=== PATIENT | male | born 1955 | race African-American/Black ===

== ENCOUNTER 2021-05-31 13:56 | Observation (INO) | payer BC, OTHER ==
[2021-05-31 17:01] LABS: PROTHROMBIN TIME (PATIENT) 11.5 SEC (9.7-13.0)
[2021-05-31 17:04] LABS: ACTIVATED PTT 30.9 SECONDS (25.2-36.5)
[2021-05-31 17:14] LABS: BASO % 0.6 % (0-2.0); EOS % 1.5 % (0-4.5); HEMATOCRIT 46.2 % (35.4-49); LYMPH % 48.5 % (8-40); MCH 30.5 pg (25.7-33.7); MCHC 34.7 g/dl (32.0-35.9); MEAN CELL VOLUME 87.9 fl (80-96); MEAN PLT VOLUME 10.7 fl (7.5-11.1); MONO % 7.2 % (3.8-10.2); NEUT % 42.2 % (42.8-82.8); PLATELET COUNT 141 10^3/uL (134-434); RBC 5.25 M/mm3 (4.00-5.60); RDW 13.1 % (11.9-15.9); WHITE BLOOD COUNT 4.5 K/mm3 (4.0-10.0)
[2021-05-31 17:17] LABS: CALCIUM 9.4 mg/dL (8.5-10.1)
[2021-05-31 17:19] LABS: ALBUMIN 4.2 g/dl (3.4-5.0)
[2021-05-31 17:21] LABS: CREATININE 1.3 mg/dL (0.55-1.3)
[2021-05-31 17:22] LABS: BILIRUBIN,TOTAL 0.9 mg/dL (0.2-1); TOT PROT 8.7 g/dl (6.4-8.2)
[2021-05-31] MEDS ORDERED: ASPIRIN 81 MG CHEWABLE TABLETS PO ONE (17:35)
[2021-05-31] MEDS ORDERED: ATORVASTATIN CA 80 MG TABLET (FP) PO ONE (17:36)
[2021-05-31] MEDS ORDERED: ATORVASTATIN CA 80 MG TABLET (FP) ONE ×2 (18:07→23:08)
[2021-05-31] MEDS ORDERED: ASPIRIN 81 MG CHEWABLE TABLETS ONE (18:08)
[2021-05-31] MEDS: INSULIN SLIDING SCALE (NOVOLOG) 1 VIAL SQ SCH (23:07)
[2021-05-31] MEDS ORDERED: HEPARIN NA (PORCINE) 5,000 UNITS/ML 1ML VIAL ONE (23:08)
[2021-05-31 23:13] LABS: EPI CELLS 5 /uL (0-25.1); HYALINE CASTS 0 /uL (0-3.1); URINE APPEARANCE CLEAR; URINE BACTERIA 35 /uL (0-1359); URINE BILIRUBIN NEGATIVE (NEGATIVE); URINE COLOR YELLOW; URINE GLUCOSE (UA) 3+ (NEGATIVE); URINE KETONE 1+ (NEGATIVE); URINE LEUK ESTERASE NEGATIVE (NEGATIVE); URINE NITRITE NEGATIVE (NEGATIVE); URINE PROTEIN NEGATIVE (NEGATIVE); URINE RBC 10 /uL (0-23.9); URINE UROBILINOGEN 0.2 mg/dL (0.2-1.0); URINE WBC 24 /uL (0-25.8)
[2021-05-31] MEDS: ATORVASTATIN CA 80 MG TABLET (FP) PO SCH (23:14)
[2021-05-31] MEDS: HEPARIN NA (PORCINE) 5,000 UNITS/ML 1ML VIAL SQ SCH (23:14)
[2021-06-01 07:54] LABS: BASO % 0.6 % (0-2.0); EOS % 2.2 % (0-4.5); HEMATOCRIT 41.2 % (35.4-49); HEMOGLOBIN 14.4 GM/dL (11.7-16.9); LYMPH % 57.6 % (8-40); MCH 30.4 pg (25.7-33.7); MCHC 34.9 g/dl (32.0-35.9); MEAN CELL VOLUME 87.3 fl (80-96); MEAN PLT VOLUME 11.5 fl (7.5-11.1); MONO % 8.2 % (3.8-10.2); NEUT % 31.4 % (42.8-82.8); PLATELET COUNT 149 10^3/uL (134-434); RBC 4.72 M/mm3 (4.00-5.60); RDW 13.1 % (11.9-15.9); WHITE BLOOD COUNT 3.1 K/mm3 (4.0-10.0)
[2021-06-01 08:05] LABS: CALCIUM 9.8 mg/dL (8.5-10.1)
[2021-06-01 08:06] LABS: ALBUMIN 4.1 g/dl (3.4-5.0); BLOOD UREA NITROGEN 18.7 mg/dL (7-18)
[2021-06-01 08:09] LABS: CREATININE 1.1 mg/dL (0.55-1.3)
[2021-06-01 08:10] LABS: TOT PROT 8.1 g/dl (6.4-8.2)
[2021-06-01 08:11] LABS: BILIRUBIN,TOTAL 0.7 mg/dL (0.2-1)
[2021-06-01] MEDS ORDERED: HEPARIN NA (PORCINE) 5,000 UNITS/ML 1ML VIAL ONE (08:25)
[2021-06-01] MEDS ORDERED: ASPIRIN COATED 81 MG TABLET.EC ONE (08:25)
[2021-06-01] MEDS: ASPIRIN COATED 81 MG TABLET.EC PO SCH (09:52)
[2021-06-01] MEDS: HEPARIN NA (PORCINE) 5,000 UNITS/ML 1ML VIAL SQ SCH ×2 (09:52→21:17)
[2021-06-01] MEDS: INSULIN SLIDING SCALE (NOVOLOG) 1 VIAL SQ SCH ×4 (09:52→21:15)
[2021-06-01] MEDS ORDERED: ATORVASTATIN CA 40 MG TABLET (FP) ONE (20:58)
[2021-06-01] MEDS: ATORVASTATIN CA 80 MG TABLET (FP) PO SCH (21:17)
[2021-06-02 01:07] VITALS: BMI 29.1
[2021-06-02] MEDS: INSULIN SLIDING SCALE (NOVOLOG) 1 VIAL SQ SCH ×4 (06:50→21:02)
[2021-06-02 07:23] LABS: BASO % 0.6 % (0-2.0); EOS % 2.4 % (0-4.5); HEMATOCRIT 42.1 % (35.4-49); HEMOGLOBIN 14.5 GM/dL (11.7-16.9); LYMPH % 50.4 % (8-40); MCH 30.2 pg (25.7-33.7); MCHC 34.4 g/dl (32.0-35.9); MONO % 7.4 % (3.8-10.2); NEUT % 39.2 % (42.8-82.8); PLATELET COUNT 125 10^3/uL (134-434); RBC 4.79 M/mm3 (4.00-5.60); RDW 12.8 % (11.9-15.9); WHITE BLOOD COUNT 3.5 K/mm3 (4.0-10.0)
[2021-06-02 07:48] LABS: CALCIUM 9.4 mg/dL (8.5-10.1)
[2021-06-02 07:49] LABS: ALBUMIN 3.7 g/dl (3.4-5.0)
[2021-06-02 07:50] LABS: BILIRUBIN,TOTAL 0.6 mg/dL (0.2-1); TOT PROT 7.2 g/dl (6.4-8.2)
[2021-06-02 07:52] LABS: CREATININE 1.2 mg/dL (0.55-1.3)
[2021-06-02] MEDS: ASPIRIN COATED 81 MG TABLET.EC PO SCH (10:00)
[2021-06-02] MEDS: CLOPIDOGREL BISULFATE 75 MG TABLET (FP) PO SCH (10:00)
[2021-06-02] MEDS: HEPARIN NA (PORCINE) 5,000 UNITS/ML 1ML VIAL SQ SCH ×2 (10:00→21:03)
[2021-06-02] MEDS ORDERED: ATORVASTATIN CA 40 MG TABLET (FP) ONE (20:52)
[2021-06-02] MEDS: ATORVASTATIN CA 80 MG TABLET (FP) PO SCH (21:02)
[2021-06-03] MEDS: INSULIN SLIDING SCALE (NOVOLOG) 1 VIAL SQ SCH ×4 (06:18→21:14)
[2021-06-03] MEDS: HEPARIN NA (PORCINE) 5,000 UNITS/ML 1ML VIAL SQ SCH ×2 (10:16→21:14)
[2021-06-03] MEDS: CLOPIDOGREL BISULFATE 75 MG TABLET (FP) PO SCH (10:16)
[2021-06-03] MEDS: ASPIRIN COATED 81 MG TABLET.EC PO SCH (10:16)
[2021-06-03] MEDS ORDERED: ATORVASTATIN CA 40 MG TABLET (FP) ONE (21:11)
[2021-06-03] MEDS: ATORVASTATIN CA 80 MG TABLET (FP) PO SCH (21:14)
[2021-06-04] MEDS: INSULIN SLIDING SCALE (NOVOLOG) 1 VIAL SQ SCH ×4 (06:26→21:36)
[2021-06-04] MEDS: ASPIRIN COATED 81 MG TABLET.EC PO SCH (09:42)
[2021-06-04] MEDS: CLOPIDOGREL BISULFATE 75 MG TABLET (FP) PO SCH (09:42)
[2021-06-04] MEDS: HEPARIN NA (PORCINE) 5,000 UNITS/ML 1ML VIAL SQ SCH ×2 (09:42→21:35)
[2021-06-04] MEDS ORDERED: ATORVASTATIN CA 40 MG TABLET (FP) ONE (21:34)
[2021-06-04] MEDS: ATORVASTATIN CA 80 MG TABLET (FP) PO SCH (21:35)
[2021-06-05] MEDS: INSULIN SLIDING SCALE (NOVOLOG) 1 VIAL SQ SCH ×3 (06:44→18:00)
[2021-06-05 08:55] VITALS: PULSE 68
[2021-06-05] MEDS: CLOPIDOGREL BISULFATE 75 MG TABLET (FP) PO SCH (10:16)
[2021-06-05] MEDS: ASPIRIN COATED 81 MG TABLET.EC PO SCH (10:16)
[2021-06-05] MEDS: HEPARIN NA (PORCINE) 5,000 UNITS/ML 1ML VIAL SQ SCH (10:16)
[2021-06-05 14:16] VITALS: BP 144/76; TEMP 98.2
== END 2021-06-05 19:02 | disposition home health service (06) ==
LOC: JER 13:56 → INTOOBSV 17:25 → JERBED 17:25 → J4S 06-01 19:28
PROVIDERS: ADMIT Internal Medicine; ATTEND Internal Medicine
PROC: 3E023GC Introduction of Other Therapeutic Substance into Muscle, Percutaneous Approach (ICD-10-PCS; principal; 2021-05-31)
PROC: 3E013VG Introduction of Insulin into Subcutaneous Tissue, Percutaneous Approach (ICD-10-PCS; 2021-05-31)
DX: I63.9 Cerebral infarction, unspecified (principal); E11.9 Type 2 diabetes mellitus without complications; E78.5 Hyperlipidemia, unspecified; I10 Essential (primary) hypertension; E78.00 Pure hypercholesterolemia, unspecified
CPT/HCPCS: 36415; 70450-TC; 70551-TC; 71045-TC-FY; 80053; 80061; 81003; 82962; 83036; 84484; 85025; 85610; 85730; 86850; 86900; 86901; 93005; 93010; 93306-TC; 93880-TC; 97116-GP; 97161-GP; 99285-25; C9803; G0378; J1644; U0003; U0005

== ENCOUNTER 2021-08-23 14:04 | Inpatient (IN) | payer BC, OTHER ==
[2021-08-23 17:44] LABS: BASO % 0.7 % (0-2.0); EOS % 1.8 % (0-4.5); HEMATOCRIT 39.4 % (35.4-49); HEMOGLOBIN 13.5 GM/dL (11.7-16.9); LYMPH % 41.2 % (8-40); MCH 30.1 pg (25.7-33.7); MCHC 34.3 g/dl (32.0-35.9); MEAN CELL VOLUME 87.7 fl (80-96); MEAN PLT VOLUME 9.8 fl (7.5-11.1); MONO % 5.6 % (3.8-10.2); NEUT % 50.7 % (42.8-82.8); PLATELET COUNT 197 10^3/uL (134-434); RDW 13.6 % (11.9-15.9); WHITE BLOOD COUNT 4.5 K/mm3 (4.0-10.0)
[2021-08-23 18:00] LABS: INR 1.1 (0.83-1.09); PROTHROMBIN TIME (PATIENT) 12.7 SEC (9.7-13.0)
[2021-08-23 18:09] LABS: CALCIUM 9.7 mg/dL (8.5-10.1)
[2021-08-23 18:10] LABS: ALBUMIN 3.8 g/dl (3.4-5.0)
[2021-08-23 18:13] LABS: CREATININE 1.2 mg/dL (0.55-1.3)
[2021-08-23 18:14] LABS: BILIRUBIN,TOTAL 0.8 mg/dL (0.2-1)
[2021-08-23 18:15] LABS: TOT PROT 8.3 g/dl (6.4-8.2)
[2021-08-23 20:41] LABS: URINE APPEARANCE CLEAR; URINE BILIRUBIN NEGATIVE (NEGATIVE); URINE COLOR YELLOW; URINE GLUCOSE (UA) 3+ (NEGATIVE); URINE KETONE NEGATIVE (NEGATIVE); URINE LEUK ESTERASE NEGATIVE (NEGATIVE); URINE NITRITE NEGATIVE (NEGATIVE); URINE PROTEIN NEGATIVE (NEGATIVE); URINE UROBILINOGEN 0.2 mg/dL (0.2-1.0)
[2021-08-24 03:05] VITALS: BMI 27.1
[2021-08-24] MEDS: CLOPIDOGREL BISULFATE 75 MG TABLET (FP) PO SCH (09:46)
[2021-08-24] MEDS: HEPARIN NA (PORCINE) 5,000 UNITS/ML 1ML VIAL SQ SCH ×2 (09:47→21:43)
[2021-08-24] MEDS: ASPIRIN COATED 81 MG TABLET.EC PO SCH (09:47)
[2021-08-24 10:57] LABS: BASO % 0.6 % (0-2.0); EOS % 2.1 % (0-4.5); HEMATOCRIT 36.9 % (35.4-49); HEMOGLOBIN 12.6 GM/dL (11.7-16.9); LYMPH % 34.4 % (8-40); MCH 30.1 pg (25.7-33.7); MCHC 34.1 g/dl (32.0-35.9); MEAN CELL VOLUME 88.1 fl (80-96); MEAN PLT VOLUME 9.6 fl (7.5-11.1); MONO % 5.7 % (3.8-10.2); NEUT % 57.2 % (42.8-82.8); PLATELET COUNT 173 10^3/uL (134-434); RBC 4.19 M/mm3 (4.00-5.60); RDW 13.5 % (11.9-15.9); WHITE BLOOD COUNT 4.2 K/mm3 (4.0-10.0)
[2021-08-24 11:26] LABS: ALBUMIN 3.4 g/dl (3.4-5.0); BLOOD UREA NITROGEN 14.3 mg/dL (7-18)
[2021-08-24 11:27] LABS: CALCIUM 9.3 mg/dL (8.5-10.1)
[2021-08-24 11:30] LABS: TOT PROT 7.3 g/dl (6.4-8.2)
[2021-08-24 11:31] LABS: BILIRUBIN,TOTAL 0.7 mg/dL (0.2-1)
[2021-08-24] MEDS: ATORVASTATIN CA 80 MG TABLET (FP) PO SCH (21:44)
[2021-08-25] MEDS: HEPARIN NA (PORCINE) 5,000 UNITS/ML 1ML VIAL SQ SCH ×2 (10:53→22:49)
[2021-08-25] MEDS: ASPIRIN COATED 81 MG TABLET.EC PO SCH (10:53)
[2021-08-25] MEDS: CLOPIDOGREL BISULFATE 75 MG TABLET (FP) PO SCH (10:53)
[2021-08-25] MEDS: ATORVASTATIN CA 80 MG TABLET (FP) PO SCH (22:49)
[2021-08-26 09:54] LABS: BASO % 0.6 % (0-2.0); EOS % 2.3 % (0-4.5); HEMATOCRIT 37.4 % (35.4-49); HEMOGLOBIN 12.5 GM/dL (11.7-16.9); LYMPH % 52.6 % (8-40); MCH 29.7 pg (25.7-33.7); MCHC 33.5 g/dl (32.0-35.9); MEAN CELL VOLUME 88.7 fl (80-96); MEAN PLT VOLUME 10.7 fl (7.5-11.1); MONO % 6.2 % (3.8-10.2); NEUT % 38.3 % (42.8-82.8); PLATELET COUNT 175 10^3/uL (134-434); RBC 4.21 M/mm3 (4.00-5.60); RDW 13.5 % (11.9-15.9); WHITE BLOOD COUNT 3.8 K/mm3 (4.0-10.0)
[2021-08-26] MEDS: CLOPIDOGREL BISULFATE 75 MG TABLET (FP) PO SCH (09:57)
[2021-08-26] MEDS: HEPARIN NA (PORCINE) 5,000 UNITS/ML 1ML VIAL SQ SCH ×2 (09:57→22:11)
[2021-08-26] MEDS: ASPIRIN COATED 81 MG TABLET.EC PO SCH (09:57)
[2021-08-26] MEDS ORDERED: TAMSULOSIN HCL 0.4 MG CAP PO ONE (10:15)
[2021-08-26 10:20] LABS: BLOOD UREA NITROGEN 13.3 mg/dL (7-18)
[2021-08-26 10:21] LABS: ALBUMIN 3.3 g/dl (3.4-5.0)
[2021-08-26 10:23] LABS: TOT PROT 7.2 g/dl (6.4-8.2)
[2021-08-26 10:24] LABS: BILIRUBIN,TOTAL 0.6 mg/dL (0.2-1)
[2021-08-26] MEDS: CLOTRIMAZOLE/BETAMET DIPROP 15 GM TUBE TP SCH ×2 (11:27→22:11)
[2021-08-26] MEDS: ATORVASTATIN CA 80 MG TABLET (FP) PO SCH (22:11)
[2021-08-27] MEDS: ASPIRIN COATED 81 MG TABLET.EC PO SCH (10:17)
[2021-08-27] MEDS: CLOTRIMAZOLE/BETAMET DIPROP 15 GM TUBE TP SCH ×2 (10:17→21:38)
[2021-08-27] MEDS: HEPARIN NA (PORCINE) 5,000 UNITS/ML 1ML VIAL SQ SCH ×3 (10:17→21:42)
[2021-08-27] MEDS: CLOPIDOGREL BISULFATE 75 MG TABLET (FP) PO SCH (10:17)
[2021-08-27] MEDS ORDERED: DONEPEZIL HCL 10 MG TABLET (FP) PO SCH (15:00)
[2021-08-27] MEDS: INSULIN SLIDING SCALE (NOVOLOG) 1 VIAL SQ SCH ×2 (17:01→21:42)
[2021-08-27] MEDS: metFORMIN HCL 500 MG TABLET (FP) PO SCH (17:04)
[2021-08-27] MEDS ORDERED: INSULIN (NOVOLOG) ASPART 100 UNITS/ML 10ML VIAL ONE (20:54)
[2021-08-27] MEDS: ATORVASTATIN CA 80 MG TABLET (FP) PO SCH ×2 (21:37→21:42)
[2021-08-28 05:47] VITALS: BP 157/112; PULSE 86
[2021-08-28] MEDS: metFORMIN HCL 500 MG TABLET (FP) PO SCH (06:00)
[2021-08-28] MEDS: INSULIN SLIDING SCALE (NOVOLOG) 1 VIAL SQ SCH (06:00)
[2021-08-28 06:24] VITALS: TEMP 98.3
== END 2021-08-28 10:29 | disposition left against medical advice (07) | DRG 57 ==
LOC: JER 14:04 → JERBED 17:39 → J6S 08-24 02:34
PROVIDERS: ADMIT Internal Medicine; ATTEND Internal Medicine
DX: G31.84 Mild cognitive impairment of uncertain or unknown etiology (principal); R07.89 Other chest pain; I10 Essential (primary) hypertension; E78.00 Pure hypercholesterolemia, unspecified; E78.5 Hyperlipidemia, unspecified; N48.1 Balanitis; E11.65 Type 2 diabetes mellitus with hyperglycemia; R33.9 Retention of urine, unspecified; N40.1 Benign prostatic hyperplasia with lower urinary tract symptoms
CPT/HCPCS: 36415; 70450-TC; 71046-TC-FY; 80053; 81003; 82962; 83036; 84443; 84484; 85025; 85610; 87077; 87086; 93005; 93010; 93306-TC; 97116-GP; 97162-GP; 99285-25; C9803-CS; J1644; U0003; U0005

== ENCOUNTER 2023-01-25 15:48 | Inpatient (IN) | payer OTHER ==
[2023-01-25] MEDS ORDERED: SODIUM CHLORIDE 0.9% 500 ML INFUS.BAG IV ONE (16:42)
[2023-01-25 18:06] LABS: BASO % 0.3 % (0-2.0); EOS % 0.4 % (0-4.5); HEMATOCRIT 41.4 % (35.4-49); HEMOGLOBIN 13.6 GM/dL (11.7-16.9); LYMPH % 30.8 % (8-40); MCH 29.6 pg (25.7-33.7); MCHC 32.9 g/dl (32.0-35.9); MEAN CELL VOLUME 90.1 fl (80-96); MEAN PLT VOLUME 11.3 fl (7.5-11.1); MONO % 6.1 % (3.8-10.2); NEUT % 62.4 % (42.8-82.8); PLATELET COUNT 126 10^3/uL (134-434); RBC 4.59 M/mm3 (4.00-5.60); RDW 13.6 % (11.9-15.9); WHITE BLOOD COUNT 4.7 K/mm3 (4.0-10.0)
[2023-01-25 18:11] LABS: INR 1.04 (0.83-1.09); PROTHROMBIN TIME (PATIENT) 12.1 SEC (9.7-13.0)
[2023-01-25 18:13] LABS: ACTIVATED PTT 29.2 SECONDS (25.2-36.5)
[2023-01-25 18:20] LABS: POTASSIUM 3.7 mmol/L (3.5-5.1)
[2023-01-25 18:24] LABS: BLOOD UREA NITROGEN 14.3 mg/dL (7-18); CALCIUM 9.3 mg/dL (8.5-10.1); MAGNESIUM 2.3 mg/dL (1.8-2.4)
[2023-01-25 18:27] LABS: CREATININE 1.5 mg/dL (0.55-1.3); PHOSPHOROUS 2.8 mg/dL (2.5-4.9)
[2023-01-25 18:29] LABS: BILIRUBIN,TOTAL 1.2 mg/dL (0.2-1); TOT PROT 7.4 g/dl (6.4-8.2)
[2023-01-25] MEDS ORDERED: ASPIRIN 81 MG CHEWABLE TABLETS PO ONE (21:58)
[2023-01-25] MEDS ORDERED: ATORVASTATIN CA 80 MG TABLET (FP) PO ONE (21:59)
[2023-01-25 22:04] LABS: VENOUS O2 SATURATION 60.1 % (70-80); VENOUS PCO2 46.3 mmHg (38-52); VENOUS PH 7.335 (7.310-7.410)
[2023-01-25] MEDS ORDERED: ASPIRIN 81 MG CHEWABLE TABLETS ONE (22:40)
[2023-01-25] MEDS ORDERED: ATORVASTATIN CA 80 MG TABLET (FP) ONE (22:40)
[2023-01-26 00:39] VITALS: BMI 28.3
[2023-01-26 07:56] LABS: BASO % 0.4 % (0-2.0); HEMATOCRIT 37.5 % (35.4-49); HEMOGLOBIN 12.4 GM/dL (11.7-16.9); LYMPH % 52.4 % (8-40); MCH 29.6 pg (25.7-33.7); MCHC 32.9 g/dl (32.0-35.9); MEAN CELL VOLUME 89.8 fl (80-96); MEAN PLT VOLUME 11.2 fl (7.5-11.1); MONO % 7.5 % (3.8-10.2); NEUT % 36.7 % (42.8-82.8); PLATELET COUNT 112 10^3/uL (134-434); RBC 4.18 M/mm3 (4.00-5.60); RDW 13.4 % (11.9-15.9); WHITE BLOOD COUNT 3.3 K/mm3 (4.0-10.0)
[2023-01-26 08:09] LABS: POTASSIUM 3.3 mmol/L (3.5-5.1)
[2023-01-26 08:15] LABS: CALCIUM 8.8 mg/dL (8.5-10.1)
[2023-01-26 08:16] LABS: ALBUMIN 3.5 g/dl (3.4-5.0); BLOOD UREA NITROGEN 13.7 mg/dL (7-18)
[2023-01-26 08:20] LABS: BILIRUBIN,TOTAL 1.6 mg/dL (0.2-1); TOT PROT 6.6 g/dl (6.4-8.2)
[2023-01-26 08:37] LABS: EPI CELLS 18 /uL (0-25.1); HYALINE CASTS 8 /uL (0-3.1); PH,URINE 5.5 (5.0-8.0); URINE APPEARANCE CLEAR; URINE BACTERIA 10 /uL (0-1359); URINE BILIRUBIN 1+ (NEGATIVE); URINE COLOR DK YELLOW; URINE GLUCOSE (UA) 2+ (NEGATIVE); URINE KETONE TRACE (NEGATIVE); URINE LEUK ESTERASE NEGATIVE (NEGATIVE); URINE NITRITE NEGATIVE (NEGATIVE); URINE PROTEIN 1+ (NEGATIVE); URINE WBC 21 /uL (0-25.8)
[2023-01-26] MEDS: ASPIRIN COATED 81 MG TABLET.EC PO SCH (09:41)
[2023-01-26] MEDS: CLOPIDOGREL BISULFATE 75 MG TABLET (FP) PO SCH (09:41)
[2023-01-26] MEDS: ENOXAPARIN NA (PORCINE) 40 MG/0.4 ML DISP.SYRIN SQ SCH (09:41)
[2023-01-26 10:29] LABS: URINE RBC 42.9 /uL (0-23.9)
[2023-01-26] MEDS ORDERED: POTASSIUM CHLORIDE ORAL LIQUID 20 MEQ/15 ML PO ONE (15:00)
[2023-01-26] MEDS: ATORVASTATIN CA 80 MG TABLET (FP) PO SCH (21:05)
[2023-01-27 08:20] LABS: BASO % 0.5 % (0-2.0); EOS % 2.9 % (0-4.5); HEMATOCRIT 37.2 % (35.4-49); HEMOGLOBIN 12.4 GM/dL (11.7-16.9); MCH 29.6 pg (25.7-33.7); MCHC 33.3 g/dl (32.0-35.9); MEAN CELL VOLUME 88.9 fl (80-96); MEAN PLT VOLUME 10.9 fl (7.5-11.1); MONO % 7.5 % (3.8-10.2); NEUT % 44.1 % (42.8-82.8); PLATELET COUNT 114 10^3/uL (134-434); RBC 4.18 M/mm3 (4.00-5.60); RDW 13.1 % (11.9-15.9); WHITE BLOOD COUNT 3.2 K/mm3 (4.0-10.0)
[2023-01-27 08:25] LABS: POTASSIUM 3.4 mmol/L (3.5-5.1)
[2023-01-27 08:35] LABS: CALCIUM 8.4 mg/dL (8.5-10.1)
[2023-01-27 08:36] LABS: ALBUMIN 3.3 g/dl (3.4-5.0)
[2023-01-27 08:39] LABS: CREATININE 0.9 mg/dL (0.55-1.3)
[2023-01-27 08:40] LABS: BILIRUBIN,TOTAL 1.2 mg/dL (0.2-1); TOT PROT 6.5 g/dl (6.4-8.2)
[2023-01-27] MEDS: ASPIRIN COATED 81 MG TABLET.EC PO SCH (11:12)
[2023-01-27] MEDS: ENOXAPARIN NA (PORCINE) 40 MG/0.4 ML DISP.SYRIN SQ SCH (11:12)
[2023-01-27] MEDS: CLOPIDOGREL BISULFATE 75 MG TABLET (FP) PO SCH (11:13)
[2023-01-27] MEDS ORDERED: POTASSIUM CHLORIDE ORAL LIQUID 20 MEQ/15 ML PO ONE (17:42)
[2023-01-27] MEDS: ATORVASTATIN CA 80 MG TABLET (FP) PO SCH (21:37)
[2023-01-27] MEDS: INSULIN SLIDING SCALE (NOVOLOG) 1 VIAL SQ SCH (21:44)
[2023-01-28] MEDS: metFORMIN HCL 500 MG TABLET (FP) PO SCH ×2 (06:14→17:09)
[2023-01-28] MEDS: INSULIN SLIDING SCALE (NOVOLOG) 1 VIAL SQ SCH ×4 (06:17→22:03)
[2023-01-28 08:54] LABS: BASO % 0.3 % (0-2.0); EOS % 1.2 % (0-4.5); HEMOGLOBIN 13.3 GM/dL (11.7-16.9); LYMPH % 46.9 % (8-40); MCH 30.6 pg (25.7-33.7); MCHC 35.1 g/dl (32.0-35.9); MEAN CELL VOLUME 87.1 fl (80-96); MEAN PLT VOLUME 10.9 fl (7.5-11.1); MONO % 6.8 % (3.8-10.2); NEUT % 44.8 % (42.8-82.8); PLATELET COUNT 135 10^3/uL (134-434); RBC 4.36 M/mm3 (4.00-5.60); RDW 13.4 % (11.9-15.9); WHITE BLOOD COUNT 3.4 K/mm3 (4.0-10.0)
[2023-01-28 09:13] LABS: ALBUMIN 3.6 g/dl (3.4-5.0); BLOOD UREA NITROGEN 7.8 mg/dL (7-18)
[2023-01-28 09:18] LABS: BILIRUBIN,TOTAL 1.2 mg/dL (0.2-1)
[2023-01-28] MEDS: CLOPIDOGREL BISULFATE 75 MG TABLET (FP) PO SCH (09:25)
[2023-01-28] MEDS: ENOXAPARIN NA (PORCINE) 40 MG/0.4 ML DISP.SYRIN SQ SCH (09:25)
[2023-01-28] MEDS: ASPIRIN COATED 81 MG TABLET.EC PO SCH (09:25)
[2023-01-28] MEDS: ATORVASTATIN CA 80 MG TABLET (FP) PO SCH (21:56)
[2023-01-28] MEDS ORDERED: amLODIPine BESYLATE 2.5 MG TABLET (FP) PO ONE (23:15)
[2023-01-29] MEDS: INSULIN SLIDING SCALE (NOVOLOG) 1 VIAL SQ SCH ×4 (06:18→21:50)
[2023-01-29] MEDS: metFORMIN HCL 500 MG TABLET (FP) PO SCH ×2 (06:18→16:31)
[2023-01-29 08:45] LABS: BASO % 0.5 % (0-2.0); HEMATOCRIT 38.4 % (35.4-49); HEMOGLOBIN 12.9 GM/dL (11.7-16.9); LYMPH % 46.4 % (8-40); MCH 29.6 pg (25.7-33.7); MCHC 33.5 g/dl (32.0-35.9); MEAN CELL VOLUME 88.5 fl (80-96); MEAN PLT VOLUME 10.6 fl (7.5-11.1); MONO % 6.9 % (3.8-10.2); NEUT % 43.2 % (42.8-82.8); PLATELET COUNT 134 10^3/uL (134-434); RBC 4.34 M/mm3 (4.00-5.60); RDW 12.9 % (11.9-15.9); WHITE BLOOD COUNT 3.4 K/mm3 (4.0-10.0)
[2023-01-29 08:51] LABS: POTASSIUM 3.9 mmol/L (3.5-5.1)
[2023-01-29 09:00] LABS: ALBUMIN 3.7 g/dl (3.4-5.0); BLOOD UREA NITROGEN 9.3 mg/dL (7-18); CALCIUM 9.1 mg/dL (8.5-10.1)
[2023-01-29 09:04] LABS: BILIRUBIN,TOTAL 1.5 mg/dL (0.2-1)
[2023-01-29 09:05] LABS: TOT PROT 6.8 g/dl (6.4-8.2)
[2023-01-29] MEDS: amLODIPine BESYLATE 2.5 MG TABLET (FP) PO SCH (10:41)
[2023-01-29] MEDS: CLOPIDOGREL BISULFATE 75 MG TABLET (FP) PO SCH (10:41)
[2023-01-29] MEDS: ASPIRIN COATED 81 MG TABLET.EC PO SCH (10:41)
[2023-01-29] MEDS: ENOXAPARIN NA (PORCINE) 40 MG/0.4 ML DISP.SYRIN SQ SCH (10:41)
[2023-01-29] MEDS: ATORVASTATIN CA 80 MG TABLET (FP) PO SCH (21:50)
[2023-01-30] MEDS: ONDANSETRON 4 MG/2 ML VIAL IVPUSH PRN ×2 (03:14→20:17)
[2023-01-30] MEDS: metFORMIN HCL 500 MG TABLET (FP) PO SCH ×2 (06:02→17:08)
[2023-01-30] MEDS: INSULIN SLIDING SCALE (NOVOLOG) 1 VIAL SQ SCH ×4 (06:10→21:04)
[2023-01-30] MEDS: ASPIRIN COATED 81 MG TABLET.EC PO SCH (09:06)
[2023-01-30] MEDS: CLOPIDOGREL BISULFATE 75 MG TABLET (FP) PO SCH (09:06)
[2023-01-30] MEDS: ENOXAPARIN NA (PORCINE) 40 MG/0.4 ML DISP.SYRIN SQ SCH (09:06)
[2023-01-30] MEDS: amLODIPine BESYLATE 2.5 MG TABLET (FP) PO SCH (09:06)
[2023-01-30] MEDS: ATORVASTATIN CA 80 MG TABLET (FP) PO SCH (21:59)
[2023-01-31] MEDS: INSULIN SLIDING SCALE (NOVOLOG) 1 VIAL SQ SCH ×4 (06:20→21:31)
[2023-01-31] MEDS: metFORMIN HCL 500 MG TABLET (FP) PO SCH ×2 (06:21→17:26)
[2023-01-31] MEDS: ENOXAPARIN NA (PORCINE) 40 MG/0.4 ML DISP.SYRIN SQ SCH (10:01)
[2023-01-31] MEDS: ASPIRIN COATED 81 MG TABLET.EC PO SCH (10:01)
[2023-01-31] MEDS: CLOPIDOGREL BISULFATE 75 MG TABLET (FP) PO SCH (10:01)
[2023-01-31] MEDS: amLODIPine BESYLATE 5 MG TABLET (FP) PO SCH (10:01)
[2023-01-31] MEDS: ATORVASTATIN CA 80 MG TABLET (FP) PO SCH (21:28)
[2023-02-01] MEDS: ONDANSETRON 4 MG/2 ML VIAL IVPUSH PRN ×2 (05:37→21:25)
[2023-02-01] MEDS: metFORMIN HCL 500 MG TABLET (FP) PO SCH ×2 (06:07→16:41)
[2023-02-01] MEDS: INSULIN SLIDING SCALE (NOVOLOG) 1 VIAL SQ SCH ×4 (06:07→21:25)
[2023-02-01] MEDS: ASPIRIN COATED 81 MG TABLET.EC PO SCH (09:20)
[2023-02-01] MEDS: CLOPIDOGREL BISULFATE 75 MG TABLET (FP) PO SCH (09:20)
[2023-02-01] MEDS: ENOXAPARIN NA (PORCINE) 40 MG/0.4 ML DISP.SYRIN SQ SCH (09:20)
[2023-02-01] MEDS: amLODIPine BESYLATE 5 MG TABLET (FP) PO SCH (09:20)
[2023-02-01] MEDS ORDERED: PANTOPRAZOLE 40 MG TABLET PO SCH (12:30)
[2023-02-01 15:35] VITALS: PULSE 86
[2023-02-01] MEDS: ATORVASTATIN CA 80 MG TABLET (FP) PO SCH (21:16)
[2023-02-01 21:28] VITALS: BP 165/93; RESP 16; TEMP 97.8
== END 2023-02-02 01:00 | DRG 65 ==
LOC: JER 15:48 → JERBED 22:08 → J4S 23:49
PROVIDERS: ADMIT Internal Medicine; ATTEND Internal Medicine
DX: I63.9 Cerebral infarction, unspecified (principal); G81.94 Hemiplegia, unspecified affecting left nondominant side; I10 Essential (primary) hypertension; E11.9 Type 2 diabetes mellitus without complications; N40.0 Benign prostatic hyperplasia without lower urinary tract symptoms; R29.703 NIHSS score 3; E78.00 Pure hypercholesterolemia, unspecified
CPT/HCPCS: 0241U-QW; 36415; 70450-TC; 70544-TC; 70551-TC; 71045-TC-FY; 72125-TC; 72170-TC-FY; 80053; 80061; 81003; 82136; 82550; 82553; 82607; 82803; 82962; 83036; 83735; 83918; 84100; 84484; 85025; 85610; 85730; 87077; 87086; 93005; 93010; 93306-TC; 93880-TC; 97116-GP; 97162-GP; 99285-25